=== PATIENT | male | born 1940 | race Caucasian/White ===

== ENCOUNTER 2017-11-18 13:42 | Day surgery (SDC) | payer OTHER ==
[~2017-11-18] VITALS: Ht 175.3 cm; Wt 96.8 kg
[2017-11-18] VITALS (10 sets, daily range): BP systolic 108–149; BP diastolic 51–85
[~2017-11-18 13:42] MED LIST: ASPI-611 PO; BUDE0.5A11 NEB; CHOL400T32 PO; DICL1TAB2 PO; FLUO20CA39 PO; IBUP-1986 PO; LORA10TA7 PO; LOSA100T15 PO; MULT-933 PO; NAPH15DR57 OP; POTA-82 PO; VITE1000C PO
[2017-11-18] MEDS ORDERED: MIDAZolam 5mg/5ml vial ONE (15:28)
[2017-11-18] MEDS ORDERED: LIDOcaine Viscous 15ml cup ONE (15:28)
[2017-11-18] MEDS ORDERED: fentaNYL/PF 50MCG/1 ML 2ML syringe ONE (15:28)
[2017-11-18] MEDS ORDERED: iohexol 300 MG/1 ML 50ml polymer ONE (15:29)
[2017-11-18] MEDS ORDERED: glucagon, human recombinant 1mg kit ONE (16:15)
== END 2017-11-18 18:00 | disposition home or self-care (01) ==
LOC: GI LAB 13:42
PROVIDERS: ATTEND Internal Medicine Gastroenterology
DX: Z46.59 Encounter for fitting and adjustment of other gastrointestinal appliance and device (principal); K80.50 Calculus of bile duct without cholangitis or cholecystitis without obstruction; I10 Essential (primary) hypertension; E78.5 Hyperlipidemia, unspecified; G47.33 Obstructive sleep apnea (adult) (pediatric); K21.9 Gastro-esophageal reflux disease without esophagitis; M06.9 Rheumatoid arthritis, unspecified; J44.9 Chronic obstructive pulmonary disease, unspecified; E11.9 Type 2 diabetes mellitus without complications; Z72.89 Other problems related to lifestyle; Z87.39 Personal history of other diseases of the musculoskeletal system and connective tissue; Z79.82 Long term (current) use of aspirin; Z79.1 Long term (current) use of non-steroidal anti-inflammatories (NSAID); Z87.891 Personal history of nicotine dependence; Z85.828 Personal history of other malignant neoplasm of skin; Z79.899 Other long term (current) drug therapy; Z88.8 Allergy status to other drugs, medicaments and biological substances; Z98.890 Other specified postprocedural states
CPT/HCPCS: 43264; 43275; 74328; 99152; 99153; J1610; J2250; J3010; J7030; Q9967; A4620; G0500

== ENCOUNTER 2019-08-16 07:18 | Emergency (ER) | payer OTHER, MEDICARE ==
[~2019-08-16] VITALS: Ht 172.7 cm; Wt 100.0 kg
[~2019-08-16 07:18] MED LIST changes: +ALBU8.5H8 IH; +ASPI-1 PO; -ASPI-611 PO; -BUDE0.5A11 NEB; +BUDE10.2 INH; +CHOL10006 PO; -CHOL400T32 PO; +DICL1KIT14 TOP; -DICL1TAB2 PO; +HYDR25TA4 PO; -LOSA100T15 PO; +LOSA100T57 PO; -MULT-933 PO; -NAPH15DR57 OP; +ONQPUMP ADDCANAL; -VITE1000C PO
[2019-08-16 07:50] LABS: CLARITY,URINE BLOODY (Clear); COLOR,URINE Red (Yellow); UA COLLECTION TYPE CLN CATCH MIDSTREAM
[2019-08-16 07:52] VITALS: BP 139/82
[2019-08-16 07:53] LABS: RBC,URINE TNTC /HPF (0-2); WBC,URINE TNTC /HPF (0-4)
[2019-08-16 07:56] LABS: BACTERIA,URINE 1+ /HPF (Neg); MUCUS STRANDS NONE SEEN /LPF (Neg); SQUAMOUS EPITHELIAL CELL,UR NONE SEEN /LPF (FEW); WBC CLUMPS,URINE MANY /HPF (NEGATIVE)
[2019-08-16] MEDS ORDERED: LIDOcaine 2% 10ml TOPICAL JELLY (Urojet) MM ONE (08:05)
[2019-08-16] MEDS ORDERED: CefTRIAXone 2gm/D5W 50ml 50 ML IV ONE (08:30)
[2019-08-16] MEDS ORDERED: cephalexin 250mg capsule PO ONE (08:45)
[2019-08-16] MEDS ORDERED: FLO0.4C PO (09:59)
[2019-08-16] MEDS ORDERED: CEPH500C5 PO (09:59)
== END 2019-08-16 10:11 | disposition home or self-care (01) ==
LOC: ER 07:19
DX: N39.0 Urinary tract infection, site not specified (principal); I25.10 Atherosclerotic heart disease of native coronary artery without angina pectoris; I10 Essential (primary) hypertension; J44.9 Chronic obstructive pulmonary disease, unspecified; K21.9 Gastro-esophageal reflux disease without esophagitis; E11.9 Type 2 diabetes mellitus without complications; M19.90 Unspecified osteoarthritis, unspecified site; G89.29 Other chronic pain; M06.9 Rheumatoid arthritis, unspecified; F32.9 Major depressive disorder, single episode, unspecified; Z98.890 Other specified postprocedural states; Z88.8 Allergy status to other drugs, medicaments and biological substances; Z79.82 Long term (current) use of aspirin; Z79.899 Other long term (current) drug therapy
CPT/HCPCS: 51702; 81001; 87088; 99283; 99284

== ENCOUNTER 2019-08-25 15:30 | Emergency (ER) | payer OTHER, MEDICARE ==
[~2019-08-25] VITALS: Ht 172.7 cm; Wt 103.0 kg
[~2019-08-25 15:30] MED LIST changes: +CEPH500C5 PO; +FLO0.4C PO
[2019-08-25 16:52] LABS: CLARITY,URINE CLOUDY (Clear); COLOR,URINE AMBER (Yellow); GLUCOSE, URINE NEGATIVE (Neg); KETONES,URINE TRACE mg/dl (Neg); LEUKOCYTE ESTERASE ,URINE SMALL (Neg); NITRITES, URINE NEGATIVE (Neg); OCCULT BLOOD,URINE LARGE (Neg); PROTEIN,URINE 100 mg/dl (Neg)
[2019-08-25 16:56] LABS: UA COLLECTION TYPE FOLEY CATH
[2019-08-25 17:00] LABS: BACTERIA,URINE FEW /HPF (Neg); RBC,URINE TNTC /HPF (0-2); SQUAMOUS EPITHELIAL CELL,UR FEW /LPF (FEW); YEAST MODERATE /HPF (NEGATIVE)
[2019-08-25 17:01] LABS: TRANSITIONAL EPI CELLS,URINE FEW /HPF
--- NOTE | 2019-08-25 17:45 | NUR ---
Pt has not urinated yet. Pt given a large glass of water to drink. Pt states that he hasn't really drank much today and doesn't feel like he needs to urinate.
[2019-08-25 19:55] VITALS: BP 156/92
== END 2019-08-25 19:56 | disposition home or self-care (01) ==
LOC: ER 15:30
DX: T85.9XXD Unspecified complication of internal prosthetic device, implant and graft, subsequent encounter (principal); I25.10 Atherosclerotic heart disease of native coronary artery without angina pectoris; I10 Essential (primary) hypertension; J44.9 Chronic obstructive pulmonary disease, unspecified; K21.9 Gastro-esophageal reflux disease without esophagitis; E11.9 Type 2 diabetes mellitus without complications; M19.90 Unspecified osteoarthritis, unspecified site; G89.29 Other chronic pain; M06.9 Rheumatoid arthritis, unspecified; F32.9 Major depressive disorder, single episode, unspecified; Z98.890 Other specified postprocedural states; Z88.8 Allergy status to other drugs, medicaments and biological substances; Z79.82 Long term (current) use of aspirin; Z79.899 Other long term (current) drug therapy
CPT/HCPCS: 81001; 87077; 87088; 99283; 99284

== ENCOUNTER 2020-12-14 10:33 | Outpatient (CLI) | payer OTHER ==
[~2020-12-14 10:33] MED LIST changes: +ALBU8.5H17 IH; -ALBU8.5H8 IH; -CEPH500C5 PO; -FLO0.4C PO
[2020-12-14] MEDS ORDERED: BARIUM SULFATE 340 ML SUSP.RECON***PROCEDURE AREA ONLY**DONT ENTER PO ONE (14:00)
== END 2020-12-14 23:59 | disposition home or self-care (01) ==
LOC: RAD 10:33
DX: R13.10 Dysphagia, unspecified (principal)
CPT/HCPCS: 74220

== ENCOUNTER 2021-08-22 14:55 | Inpatient (IN) | payer OTHER, MEDICARE ==
[~2021-08-22] VITALS: Ht 175.3 cm; Wt 100.0 kg
[2021-08-22 15:24] LABS: BASOPHILS # (AUTO) 0.1 X10'3 (0-0.2); BASOPHILS % (AUTO) 1.2 % (0-1); EOSINOPHILS # (AUTO) 0.1 X10'3 (0-0.9); EOSINOPHILS % (AUTO) 1.3 % (0-6); HEMOGLOBIN 14.5 g/dl (14.0-17.9); LYMPHOCYTES # (AUTO) 1.7 X10'3 (1.1-4.8); LYMPHOCYTES % (AUTO) 15.5 % (21-51); MEAN CORPUSCULAR HEMOGLOBIN 31.1 PG (27.0-31.0); MEAN CORPUSCULAR HGB CONC 34.5 g/dL (33.0-36.5); MEAN CORPUSCULAR VOLUME 90.2 FL (78-98); MEAN PLATELET VOLUME 7.3 FL (7.4-10.4); MONOCYTES # (AUTO) 0.8 X10'3 (0-0.9); MONOCYTES % (AUTO) 7.7 % (2-12); NEUTROPHILS # (AUTO) 7.9 X10'3 (1.8-7.7); NEUTROPHILS % (AUTO) 74.3 % (42-75); PLATELET COUNT 379 X10'3 (140-440); RED BLOOD COUNT 4.65 X10'6 (4.70-6.10); RED CELL DISTRIBUTION WIDTH 12.9 % (11.5-14.5); WHITE BLOOD COUNT 10.7 X10'3 (4.5-11.0)
[2021-08-22 15:38] LABS: APTT 27 SECONDS (22-32)
[2021-08-22 15:48] LABS: ALANINE AMINOTRANSFERASE 15 U/L (12-78); ALBUMIN 2.9 G/DL (3.4-5.0); ALBUMIN/GLOBULIN RATIO 0.6 (1.1-1.5); ALKALINE PHOSPHATASE 70 IU/L (46-116); ANION GAP 13 (8-16); ASPARTATE AMINO TRANSFERASE 18 U/L (10-37); BILIRUBIN,TOTAL 0.6 MG/DL (0.1-1.0); BLOOD UREA NITROGEN 14 MG/DL (7-18); BUN/CREATININE RATIO 12.7 (5.4-32.0); CALCIUM 9.4 MG/DL (8.5-10.1); CHLORIDE 103 MMOL/L (99-107); GLUCOSE 108 MG/DL (70-104); POTASSIUM 4.1 MMOL/L (3.5-5.1); SODIUM 143 MMOL/L (135-145); TOTAL CARBON DIOXIDE 26.8 MMOL/L (24-32); TOTAL PROTEIN 8.1 G/DL (6.4-8.2); eGFR 64 ML/MIN
[2021-08-22] MEDS ORDERED: potassium CL 10mEq/100ml bag 100 ML IV PRN (17:25)
[2021-08-22] MEDS ORDERED: heparin 10,000 units/1 ML INJ IV PRN (17:25)
[2021-08-22] MEDS ORDERED: ondansetron/PF 4mg/2ml inj IV PRN (17:25)
[2021-08-22] MEDS ORDERED: magnesium Cl slow-release 64mg tablet PO PRN (17:25)
[2021-08-22] MEDS ORDERED: HYDROcodone/acetaminophen 10/325mg tab PO PRN (17:25)
[2021-08-22] MEDS ORDERED: magnesium 2GM in 50ml NS 50 ML IV PRN (17:25)
[2021-08-22] MEDS ORDERED: POTASSIUM BICARB 20meq eff tab 20 MEQ TABLET.EFF PO PRN ×2 (17:25)
[2021-08-22] MEDS ORDERED: acetaminophen 325mg tablet PO PRN ×2 (17:25)
[2021-08-22] MEDS ORDERED: morphine 2 MG/ML inj. syringe IV PRN ×2 (17:25)
[2021-08-22] MEDS ORDERED: HYDROcodone/acetaminophen 5mg/325mg tablet PO PRN (17:25)
[2021-08-22] MEDS ORDERED: magnesium 4gm in 100ml NS 100 ML IV PRN (17:25)
[2021-08-22] MEDS ORDERED: LORazepam 1 MG tablet PO PRN (17:30)
[2021-08-22] MEDS ORDERED: LORazepam 2 mg/ml vial IV PRN (17:30)
[2021-08-22 17:33] LABS: D-DIMER 3.95 MG/L FEU (0-0.50)
[2021-08-22] MEDS ORDERED: heparin 10,000 units/1 ML INJ IV ONE (17:33)
[2021-08-22] MEDS: heparin 25,000 UNIT/250ml bag 250 ML IV SCH (18:03)
[2021-08-22] MEDS: normal saline 1000ml 1,000 ML IV SCH (18:04)
--- NOTE | 2021-08-22 19:15 | NUR ---
Patient resting comfortably on gurney, pending admit to floor. I turned off lights and shut door for comfort.
[2021-08-22] MEDS: K and/or MAG REPLACEMENT MC SCH ×2 (20:00→20:03)
[2021-08-23 01:39] LABS: BASOPHILS % (AUTO) 0.3 % (0-1); EOSINOPHILS # (AUTO) 0.2 X10'3 (0-0.9); HEMATOCRIT 40.1 % (42.0-52.0); HEMOGLOBIN 13.9 g/dl (14.0-17.9); LYMPHOCYTES # (AUTO) 1.8 X10'3 (1.1-4.8); LYMPHOCYTES % (AUTO) 20.1 % (21-51); MEAN CORPUSCULAR HEMOGLOBIN 31.2 PG (27.0-31.0); MEAN CORPUSCULAR HGB CONC 34.6 g/dL (33.0-36.5); MEAN CORPUSCULAR VOLUME 90.3 FL (78-98); MEAN PLATELET VOLUME 7.6 FL (7.4-10.4); MONOCYTES # (AUTO) 0.8 X10'3 (0-0.9); MONOCYTES % (AUTO) 8.9 % (2-12); NEUTROPHILS # (AUTO) 6.3 X10'3 (1.8-7.7); NEUTROPHILS % (AUTO) 68.7 % (42-75); PLATELET COUNT 336 X10'3 (140-440); RED BLOOD COUNT 4.45 X10'6 (4.70-6.10); RED CELL DISTRIBUTION WIDTH 12.9 % (11.5-14.5); WHITE BLOOD COUNT 9.2 X10'3 (4.5-11.0)
[2021-08-23 01:55] LABS: ALANINE AMINOTRANSFERASE 14 U/L (12-78); ALBUMIN 2.5 G/DL (3.4-5.0); ALBUMIN/GLOBULIN RATIO 0.5 (1.1-1.5); ALKALINE PHOSPHATASE 65 IU/L (46-116); ANION GAP 13 (8-16); ASPARTATE AMINO TRANSFERASE 15 U/L (10-37); BILIRUBIN,TOTAL 0.6 MG/DL (0.1-1.0); BLOOD UREA NITROGEN 13 MG/DL (7-18); BUN/CREATININE RATIO 12.4 (5.4-32.0); CALCIUM 9.4 MG/DL (8.5-10.1); CHLORIDE 105 MMOL/L (99-107); CHOL/HDL RATIO 4.1 (0.00-4.99); CHOLESTEROL 187 MG/DL (0-200); CREATININE 1.05 MG/DL (0.60-1.10); GLUCOSE 107 MG/DL (70-104); HDL CHOLESTEROL 46 MG/DL (35-60); LDL CHOLESTEROL 120 MG/DL (50-100); POTASSIUM 3.6 MMOL/L (3.5-5.1); SODIUM 144 MMOL/L (135-145); TOTAL PROTEIN 7.3 G/DL (6.4-8.2); TRIGLYCERIDES 93 MG/DL (20-135); eGFR 68 ML/MIN
--- NOTE | 2021-08-23 07:19 | NUR ---
Patient placed in hospital bed at this time. Gown changed, repositioned for comfort, call light within reach.
[2021-08-23] MEDS: heparin 25,000 UNIT/250ml bag 250 ML IV SCH ×2 (08:28→22:51)
[2021-08-23] MEDS ORDERED: FINA5TAB11 PO (09:52)
[2021-08-23] MEDS ORDERED: OFLO5DRO EACHEYE (09:52)
[2021-08-23] MEDS ORDERED: ETOD300C29 PO (09:52)
[2021-08-23] MEDS ORDERED: CARB15DR58 EACHEYE (09:52)
[2021-08-23] MEDS ORDERED: FLUT1DIS20 INH (09:52)
[2021-08-23] MEDS ORDERED: OMEP20CA16 PO (09:52)
[2021-08-23] MEDS: normal saline 1000ml 1,000 ML IV SCH (13:56)
[2021-08-23] MEDS ORDERED: albuterol 2.5 MG/3 ML nebule NEB PRN (16:15)
[2021-08-23] MEDS: oseltamivir phos 75mg capsule PO SCH (19:59)
[2021-08-23] MEDS: K and/or MAG REPLACEMENT MC SCH (20:00)
[2021-08-23 22:00] VITALS: BP 148/69
[2021-08-24 02:00] VITALS: BP 130/81
[2021-08-24] MEDS: heparin 25,000 UNIT/250ml bag 250 ML IV SCH (04:17)
--- NOTE | 2021-08-24 04:26 | NUR ---
Per telephone sales representative patient having random P waves, and occasionally HR drops down in mid 40's low 50's, then comes right back up. Patient having no symptoms, will continue to monitor and contact Dr as needed.
[2021-08-24 04:39] LABS: ALANINE AMINOTRANSFERASE 14 U/L (12-78); ALBUMIN 2.4 G/DL (3.4-5.0); ALBUMIN/GLOBULIN RATIO 0.5 (1.1-1.5); ALKALINE PHOSPHATASE 63 IU/L (46-116); ANION GAP 9 (8-16); ASPARTATE AMINO TRANSFERASE 19 U/L (10-37); BILIRUBIN,TOTAL 0.3 MG/DL (0.1-1.0); BLOOD UREA NITROGEN 13 MG/DL (7-18); BUN/CREATININE RATIO 13.5 (5.4-32.0); CALCIUM 9.1 MG/DL (8.5-10.1); CHLORIDE 107 MMOL/L (99-107); CREATININE 0.96 MG/DL (0.60-1.10); GLUCOSE 114 MG/DL (70-104); POTASSIUM 3.6 MMOL/L (3.5-5.1); SODIUM 141 MMOL/L (135-145); TOTAL CARBON DIOXIDE 25.5 MMOL/L (24-32); TOTAL PROTEIN 6.8 G/DL (6.4-8.2); eGFR 75 ML/MIN
[2021-08-24 04:41] LABS: BASOPHILS # (AUTO) 0.1 X10'3 (0-0.2); BASOPHILS % (AUTO) 0.7 % (0-1); EOSINOPHILS # (AUTO) 0.2 X10'3 (0-0.9); EOSINOPHILS % (AUTO) 2.9 % (0-6); HEMATOCRIT 40.6 % (42.0-52.0); HEMOGLOBIN 13.8 g/dl (14.0-17.9); LYMPHOCYTES # (AUTO) 1.8 X10'3 (1.1-4.8); MEAN CORPUSCULAR HEMOGLOBIN 30.9 PG (27.0-31.0); MEAN CORPUSCULAR VOLUME 90.6 FL (78-98); MEAN PLATELET VOLUME 7.7 FL (7.4-10.4); MONOCYTES # (AUTO) 0.7 X10'3 (0-0.9); MONOCYTES % (AUTO) 9.5 % (2-12); NEUTROPHILS # (AUTO) 4.8 X10'3 (1.8-7.7); NEUTROPHILS % (AUTO) 62.9 % (42-75); PLATELET COUNT 327 X10'3 (140-440); RED BLOOD COUNT 4.47 X10'6 (4.70-6.10); RED CELL DISTRIBUTION WIDTH 12.8 % (11.5-14.5); WHITE BLOOD COUNT 7.6 X10'3 (4.5-11.0)
--- NOTE | 2021-08-24 04:48 | NUR ---
Per tele patient had 19 beats VTach, patient currently sleeping. RN called Dr Vences informed him, order received for Mag oxide 400MG BID. Order entered Addendum: 08/24/21 at 0451 by Tena De Jesus RN Wrong patient, Dr Vences contacted regarding random P waves and HR occasionally noted in low 50s to mid 40s. Dr vences aware and no further orders entered.
[2021-08-24 06:00] VITALS: BP 146/88
--- NOTE | 2021-08-24 06:00 | NUR ---
Patient in room PCU 3009. I have received report from Tena CANSECO and had the opportunity to ask questions and assume patient care.
[2021-08-24] MEDS: K and/or MAG REPLACEMENT MC SCH (08:00)
[2021-08-24] MEDS ORDERED: magnesium oxide 400mg tablet PO ONE (08:00)
[2021-08-24] MEDS: oseltamivir phos 75mg capsule PO SCH (08:38)
[2021-08-24] MEDS: normal saline 1000ml 1,000 ML IV SCH (09:25)
[2021-08-24 11:00] VITALS: BP 129/80
[2021-08-24] MEDS ORDERED: APIX5TAB3 PO (12:31)
[2021-08-24] MEDS ORDERED: ASPI-611 PO (12:31)
[2021-08-24] MEDS ORDERED: TAM75C PO (12:31)
--- NOTE | 2021-08-24 12:53 | NUR ---
Orders for eliquis 10mg put in per Dr. Salazar. Patient to take eliquis prior to discharge so that he is covered for today.
[2021-08-24] MEDS ORDERED: apixaban 5mg tablet PO SCH (12:55)
--- NOTE | 2021-08-24 14:25 | NUR ---
Patient's IV removed, tele box removed, friend at bedside to take patient home. Patient taken to front via wheelchair. Patient stable on discharge.
[2021-08-31] MEDS ORDERED: apixaban 5mg tablet PO SCH (08:00)
== END 2021-08-24 13:59 | disposition home or self-care (01) | DRG 176 ==
LOC: ER 14:55 → ED HOLD 17:29 → PCU 3S 08-23 21:52
PROVIDERS: ADMIT Internal Medicine; ATTEND Internal Medicine
DX: I26.93 Single subsegmental thrombotic pulmonary embolism without acute cor pulmonale (principal); J43.2 Centrilobular emphysema; G47.30 Sleep apnea, unspecified; M19.90 Unspecified osteoarthritis, unspecified site; F10.10 Alcohol abuse, uncomplicated; Z20.822 Contact with and (suspected) exposure to COVID-19; E11.22 Type 2 diabetes mellitus with diabetic chronic kidney disease; I12.9 Hypertensive chronic kidney disease with stage 1 through stage 4 chronic kidney disease, or unspecified chronic kidney disease; N18.30 Chronic kidney disease, stage 3 unspecified; F32.A Depression, unspecified; E78.5 Hyperlipidemia, unspecified; G89.29 Other chronic pain; I25.10 Atherosclerotic heart disease of native coronary artery without angina pectoris; M06.9 Rheumatoid arthritis, unspecified; G47.33 Obstructive sleep apnea (adult) (pediatric); K21.9 Gastro-esophageal reflux disease without esophagitis; M54.9 Dorsalgia, unspecified; Z87.891 Personal history of nicotine dependence; Z88.8 Allergy status to other drugs, medicaments and biological substances; Z71.41 Alcohol abuse counseling and surveillance of alcoholic
CPT/HCPCS: 36415; 80053; 80061; 83880; 84484; 85025; 85379; 85610; 85730; 87081; 87502; 87503; 93005; 93306; 97161; 97530; 99285; G0378; J1644; J7030

== ENCOUNTER 2024-07-20 09:15 | Day surgery (SDC) | payer OTHER, MEDICARE ==
[~2024-07-20] VITALS: Ht 175.3 cm; Wt 105.0 kg
[~2024-07-20 09:15] MED LIST changes: +ACET-2971 PO; +APIX2.5T PO; -ASPI-1 PO; -BUDE10.2 INH; +CARB15DR58 EACHEYE; +FINA5TAB11 PO; +FLUT1DIS20 INH; +GLUC1TAB75 PO; -IBUP-1986 PO; -LOSA100T57 PO; +LOSA100T58 PO; +MULT-1085 PO; +OFLO5DRO EACHEYE; +OMEP20CA16 PO; -ONQPUMP ADDCANAL; +POTA-366 PO; -POTA-82 PO; +TAMS-55 PO; +ZINC220T3 PO
[2024-07-20 10:45] VITALS: BP 152/77; PULSE 61; RESP 15
[2024-07-20] MEDS ORDERED: HYDROmorphone/PF 0.2 MG/ML SYRINGE IV PRN (11:30)
[2024-07-20] MEDS ORDERED: ondansetron/PF 4mg/2ml inj IV PRN (11:30)
[2024-07-20] MEDS ORDERED: proCHLORperazine 10 MG/2 ml inj IV PRN (11:30)
[2024-07-20] MEDS ORDERED: ringers solution, lacted 1,000 ML IV SCH (11:30)
[2024-07-20] MEDS ORDERED: meperidine/PF 25mg/ml syringe IV PRN (11:30)
[2024-07-20] MEDS ORDERED: acetaminophen 1,000mg/100ml IV 100 ML IV PRN (11:30)
[2024-07-20] MEDS ORDERED: morphine 2 MG/ML inj. syringe IV PRN (11:30)
[2024-07-20 12:20] VITALS: BP 100/40; PULSE 64; RESP 14; O2SAT 97
[2024-07-20 12:30] VITALS: BP 122/65; PULSE 62; RESP 16; O2SAT 96
[2024-07-20 12:40] VITALS: BP 154/85; PULSE 57; RESP 18; O2SAT 97
[2024-07-20 12:50] VITALS: BP 162/81; PULSE 57; RESP 16; O2SAT 96
== END 2024-07-20 13:05 | disposition home or self-care (01) ==
LOC: GI LAB 09:15
PROVIDERS: ATTEND Internal Medicine Gastroenterology
DX: K92.1 Melena (principal); K64.1 Second degree hemorrhoids; K57.30 Diverticulosis of large intestine without perforation or abscess without bleeding; J44.9 Chronic obstructive pulmonary disease, unspecified; G47.30 Sleep apnea, unspecified; Z88.8 Allergy status to other drugs, medicaments and biological substances; Z91.030 Bee allergy status; Z72.89 Other problems related to lifestyle; Z87.442 Personal history of urinary calculi; Z98.890 Other specified postprocedural states
CPT/HCPCS: 45378; J0131; J0780; J1171; J2175; J2270; J2405; J7030; J7120; Z7512; 45385; C1889